=== PATIENT | male | born 1965 | race Caucasian/White ===

== ENCOUNTER 2021-07-16 07:40 | Day surgery (SDC) | payer MEDICARE ==
[2021-07-16] MEDS ORDERED: Depo-Medrol 40 MG/ML IM ONE (07:41)
[2021-07-16] MEDS ORDERED: Marcaine Mpf 0.5% Vial 30 Ml IJ ONE (07:41)
[2021-07-16] MEDS ORDERED: Lactated Ringers 1,000 ML IV ONE (09:14)
--- NOTE | 2021-07-16 09:58 | XRAY ---
Indication: Right SI joint injection. Intraoperative fluoroscopy provided for 18 seconds. 2 digital spot images submitted for interpretation demonstrates posterior needle tip projecting over the inferior right SI joint. Correlate with intraoperative findings/report.
--- NOTE | 2021-07-16 11:43 | XRAY ---
18 seconds of fluoroscopy was used in surgery for a right SI joint injection.
== END 2021-07-16 09:45 | disposition home or self-care (01) ==
LOC: SDC-PAIN 07:40
PROVIDERS: ATTEND Psychiatry & Neurology Pain Medicine
DX: M46.1 Sacroiliitis, not elsewhere classified (principal); E11.9 Type 2 diabetes mellitus without complications; Z79.899 Other long term (current) drug therapy
CPT/HCPCS: 27096; 72020; 77002; 82947; G0260; J1030

== ENCOUNTER 2021-08-20 06:49 | Day surgery (SDC) | payer MEDICARE ==
[2021-08-20] MEDS ORDERED: LIDOCAINE HCL 2% 100 MG/5 ML IJ ONE (06:50)
[2021-08-20] MEDS ORDERED: Lactated Ringers 1,000 ML IV ONE (08:30)
[2021-08-20] MEDS ORDERED: DIPRIVAN 200 MG/20 ML IV ONE (08:38)
--- NOTE | 2021-08-21 18:30 | XRAY ---
31 seconds of fluoroscopy was used in surgery for a bilateral L4-S1 MBB.
--- NOTE | 2021-08-22 20:15 | XRAY ---
Indication: Bilateral L4-S1 MBB. Intraoperative fluoroscopy provided for 31 seconds. Single digital spot image submitted for interpretation demonstrates posterior needle tips projecting over the expected L4-S1 nerve roots. Correlate with intraoperative findings/report.
== END 2021-08-20 08:48 | disposition home or self-care (01) ==
LOC: SDC-PAIN 06:49
PROVIDERS: ATTEND Psychiatry & Neurology Pain Medicine
DX: M47.816 Spondylosis without myelopathy or radiculopathy, lumbar region (principal); E11.9 Type 2 diabetes mellitus without complications; Z79.899 Other long term (current) drug therapy
CPT/HCPCS: 64493; 64494; 72020; 77002; 82947; J2704

== ENCOUNTER 2021-10-08 06:54 | Day surgery (SDC) | payer MEDICARE ==
[2021-10-08] MEDS ORDERED: Marcaine Mpf 0.5% Vial 30 Ml IJ ONE (06:55)
[2021-10-08] MEDS ORDERED: Pepcid 20 MG VIAL IV ONE (07:52)
[2021-10-08] MEDS ORDERED: DIPRIVAN 200 MG/20 ML IV ONE (08:29)
[2021-10-08] MEDS ORDERED: Lactated Ringers 1,000 ML IV ONE (10:14)
--- NOTE | 2021-10-08 11:14 | XRAY ---
14 seconds of fluoroscopy was used in surgery for a bilateral L4-S1 MBB.
--- NOTE | 2021-10-08 11:14 | XRAY ---
Indication: Bilateral L4-S1 MBB. Intraoperative fluoroscopy provided for 14 seconds. Single digital spot image submitted for interpretation demonstrates posterior needle tips projecting over the expected left and right L4-S1 nerve roots. Correlate with intraoperative findings/report.
== END 2021-10-08 08:50 | disposition home or self-care (01) ==
LOC: SDC-PAIN 06:54
PROVIDERS: ATTEND Psychiatry & Neurology Pain Medicine
DX: M47.816 Spondylosis without myelopathy or radiculopathy, lumbar region (principal); E11.9 Type 2 diabetes mellitus without complications; Z79.899 Other long term (current) drug therapy
CPT/HCPCS: 64493; 64494; 72020; 77002; 82947; J2704

== ENCOUNTER 2021-11-05 09:36 | Day surgery (SDC) | payer MEDICARE ==
[2021-11-05] MEDS ORDERED: Depo-Medrol 40 MG/ML IM ONE (09:37)
[2021-11-05] MEDS ORDERED: BUPIVACAINE 0.5% VIAL IJ ONE (09:37)
[2021-11-05] MEDS ORDERED: DIPRIVAN 200 MG/20 ML IV ONE ×3 (11:22→11:40)
[2021-11-05] MEDS ORDERED: Lactated Ringers 1,000 ML IV ONE (14:29)
--- NOTE | 2021-11-05 18:17 | XRAY ---
Indication: Right L4-S1 RFA. Intraoperative fluoroscopy provided for 40 seconds. 4 digital spot image submitted for interpretation demonstrates posterior needle tips projecting over the expected right L4-S1 nerve roots. Correlate with intraoperative findings/report.
--- NOTE | 2021-11-05 18:31 | XRAY ---
40 seconds of fluoroscopy was used in surgery for a right L4-S1 RFA.
== END 2021-11-05 11:52 | disposition home or self-care (01) ==
LOC: SDC-PAIN 09:36
PROVIDERS: ATTEND Psychiatry & Neurology Pain Medicine
DX: M47.816 Spondylosis without myelopathy or radiculopathy, lumbar region (principal); E11.9 Type 2 diabetes mellitus without complications; Z79.899 Other long term (current) drug therapy
CPT/HCPCS: 64635; 64636; 72100; 77002; 82947; J1030; J2704

== ENCOUNTER 2021-11-12 09:42 | Day surgery (SDC) | payer MEDICARE ==
[2021-11-12] MEDS ORDERED: Marcaine Mpf 0.5% Vial 30 Ml IJ ONE (09:43)
[2021-11-12] MEDS ORDERED: Depo-Medrol 40 MG/ML IM ONE (09:43)
[2021-11-12] MEDS ORDERED: LIDOCAINE HCL 1% 50 MG/5 ML VL PF IJ ONE (09:43)
[2021-11-12] MEDS ORDERED: DIPRIVAN 200 MG/20 ML IV ONE (11:40)
[2021-11-12] MEDS ORDERED: Lactated Ringers 1,000 ML IV ONE (12:42)
--- NOTE | 2021-11-12 13:48 | XRAY ---
38 seconds of fluoroscopy was used in surgery for left L4-S1 RFA.
--- NOTE | 2021-11-12 19:55 | XRAY ---
Indication: Left L4-S1 RFA. Intraoperative fluoroscopy provided for 38 seconds. 3 digital spot image submitted for interpretation demonstrates posterior needle tips projecting over the expected left L4-S1 nerve roots. Correlate with intraoperative findings/report.
== END 2021-11-12 12:10 | disposition home or self-care (01) ==
LOC: SDC-PAIN 09:42
PROVIDERS: ATTEND Psychiatry & Neurology Pain Medicine
DX: M47.816 Spondylosis without myelopathy or radiculopathy, lumbar region (principal); E11.9 Type 2 diabetes mellitus without complications; Z79.899 Other long term (current) drug therapy
CPT/HCPCS: 64635; 64636; 72100; 77002; 82947; J1030; J2001; J2704

== ENCOUNTER 2021-12-24 07:31 | Day surgery (SDC) | payer MEDICARE ==
[2021-12-24] MEDS ORDERED: Depo-Medrol 40 MG/ML IM ONE (07:32)
[2021-12-24] MEDS ORDERED: BUPIVACAINE 0.5% VIAL IJ ONE (07:32)
[2021-12-24] MEDS ORDERED: DIPRIVAN 200 MG/20 ML IV ONE (09:14)
[2021-12-24] MEDS ORDERED: Lactated Ringers 1,000 ML IV ONE (09:44)
--- NOTE | 2021-12-24 11:03 | XRAY ---
Indication: Right SI joint injection. Intraoperative fluoroscopy provided for 10 seconds. 2 digital spot image submitted for interpretation demonstrates posterior needle tip projecting over the right SI joint. Correlate with intraoperative findings/report.
--- NOTE | 2021-12-24 11:34 | XRAY ---
10 seconds fluoroscopy time in surgery for injection of the right SI joint.
== END 2021-12-24 09:33 | disposition home or self-care (01) ==
LOC: SDC-PAIN 07:31
PROVIDERS: ATTEND Psychiatry & Neurology Pain Medicine
DX: M46.1 Sacroiliitis, not elsewhere classified (principal); E11.9 Type 2 diabetes mellitus without complications; Z79.899 Other long term (current) drug therapy
CPT/HCPCS: 01992; 27096; 72170; 77002; 82947; G0260; J1030; J2704